=== PATIENT | female | born 2000 | race Caucasian/White ===

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

== ENCOUNTER 2019-07-25 18:43 | Emergency (ER) | payer MEDICAID, SELFPAY ==
[2019-07-25 18:44] VITALS: BP 130/76; PULSE 102; RESP 16; TEMP 36.7; O2SAT 97; BMI 42.1
--- NOTE | 2019-07-25 18:56 | ED.VIS.GEN ---
History of Present Illness Chief Complaint: Cough Informant: Patient Onset: Weeks Current Severity: Mild Maximum Severity: Mild Narrative: Patient presents secondary to viral URI symptoms. She states for the past 1 week she had a low-grade fever. Today it was up to 100.5, the highest the temperature has been a week. She reports generalized fatigue and some mild body aches. She reports occasional white to yellow-colored sputum production with her cough. Patient believes she has a viral upper respiratory infection, however believes that she should follow supportive care at home. She is here at the insistence of her family. - Past Medical History (1) PCOS (polycystic ovarian syndrome) Status: Chronic (2) Depression Status: Chronic (3) Patellofemoral syndrome Status: Chronic Past Medical History - Allergies and Home Meds Allergies/Adverse Reactions: Allergies amoxicillin [From Augmentin] Allergy (Verified 07/25/19 18:44) Hives clavulanic acid [From Augmentin] Allergy (Verified 07/25/19 18:44) Hives Primary Care Physician: Lashae Rebolledo MD [Primary Care Provider] - Prior records reviewed: Yes Lives: Spouse/ Significant Other Smoking Status: Current every day smoker Review of Systems General: Reports: Fever - T-max equals 100.5 Eyes: Denies: Visual changes - bilaterally ENT: Reports: Sore throat - Mild sore throat. Denies: Bilateral ear pain Cardiovascular: Denies: Chest pain Respiratory: Reports: Cough, Sputum. Denies: Dyspnea Gastrointestinal: Denies: Abdominal pain, Nausea, Vomiting, Diarrhea Musculoskeletal: Reports: Myalgias. Denies: Extremity Pain Skin: Denies: Rash Neurological: Denies: Headache Endocrine: Denies: Polyuria, Polydipsia Hematologic: Denies: Easy bruising Allergy: Denies: Uticaria Physical Exam Vital Signs/Narrative: Vital Signs Temp Pulse Resp BP Pulse Ox 07/25/19 18:44 98.1 F 102 H 16 130/76 H 97 Inital Vital Signs reviewed: Yes General: Well nourished, Well developed Head: Normocephalic Eyes: Perrl, EOMI ENT: TM's clear, - - Mild posterior pharyngeal drainage. Uvula midline. Neck: Supple Cardiovascular: Regular rate, Regular rhythm Respiratory: No distress, CTA bilaterally Abdomen: Soft, Nontender, Nondistended Extremities: Nontender Skin: Normal color Neurological: Alert, Oriented x3, Normal Strength, Normal Sensation Psychological: Normal affect Diagnostic/Tx/Re-eval - Medical Decision Making I discussed with the patient that I agree she has a viral syndrome. This could be secondary to influenza, coronavirus, or multitude of other viruses. At this time she does not meet criteria for testing for coronavirus. She had very minimal fever and I do not believe influenza testing is needed, especially in light of the fact that she has had symptoms for 1 week. Patient is comfortable with supportive care at home. She will be given handout on coronavirus and how to self monitor her symptoms. ED Disposition - Plan for ED Patient: Disposition: Home or Assisted Living Diagnosis: Viral syndrome Instructions: ED Viral Syndrome Referrals: Lashae Rebolledo MD [Primary Care Provider] - As Needed
== END 2019-07-25 19:13 | disposition home or self-care (01) ==
PROVIDERS: Emergency Provider Emergency Medicine; PCP Pediatrics
DX: B34.9 Viral infection, unspecified (principal); R50.9 Fever, unspecified; R05 Cough; R53.83 Other fatigue; J02.9 Acute pharyngitis, unspecified; M79.10 Myalgia, unspecified site; E28.2 Polycystic ovarian syndrome; Z79.84 Long term (current) use of oral hypoglycemic drugs; F17.200 Nicotine dependence, unspecified, uncomplicated
CPT/HCPCS: 99282

== ENCOUNTER 2019-08-15 17:00 | Emergency (ER) | payer MEDICAID, SELFPAY ==
[2019-08-15 17:01] VITALS: BP 133/78; PULSE 108; RESP 17; TEMP 36.8; O2SAT 97; BMI 44.1
[2019-08-15 17:10] VITALS: O2SAT 97
--- NOTE | 2019-08-15 17:15 | ED.DCSUM_ITS ---
- ER Visit Summary Date of Service: 08/15/19 Chief Complaint: Cough History of Present Illness: The patient is a 19 F who presents with a cough. She has had this for 1 week. She states is productive of a whitish sputum. She also notes the nasal congestion. She saw her doctor who put her on albuterol and Mucinex. She is not getting any better with this. She was tested for mono but this was negative as well. Denies any exposures to anybody with coronavirus. She has not had a fever at home. She does vape at home as well. Physical Examination: Vital signs reviewed. HEENT exam unremarkable. Heart is regular rate and rhythm without murmurs. Lungs are clear to auscultation. Abdomen is soft and nontender. Extremities reveal no edema. Skin exam normal. Neurologic exam normal. Test Results: None performed Emergency Department Course and Treatment: The patient states that she is already had a CAT scan during this process and it was negative. I do not feel this needs to be repeated. I want to start her on antibiotics regardless. I will give her a Z-Manoj and prednisone. She will call her doctor later this week for follow-up Treatment Plan: [] Disposition: Discharge Impression: Acute bronchitis This note was generated with [employer] dictation software. It may contain incorrect words, spelling, and punctuation that were not noted in review of the chart prior to signing ED Disposition - Plan for ED Patient: Disposition: Home or Assisted Living Instructions: ED Upper Resp Infec Abx Tx Prescriptions: Prednisone [Deltasone] 40 mg PO DAILY #10 tab Transmission Status: Pending to [facility] Azithromycin [Zithromax Z-Manoj] 250 mg PO UD #1 box Transmission Status: Pending to [id number] Referrals: Lsahae Rebolledo MD [Primary Care Provider] -
== END 2019-08-15 17:23 | disposition home or self-care (01) ==
LOC: ED 17:20
PROVIDERS: Emergency Provider Emergency Medicine; PCP Pediatrics
DX: J20.9 Acute bronchitis, unspecified (principal); Z72.0 Tobacco use
CPT/HCPCS: 99282

== ENCOUNTER 2019-10-06 13:00 | Emergency (ER) | payer MEDICAID, SELFPAY ==
[2019-10-06 13:01] VITALS: BP 136/116; PULSE 93; RESP 17; TEMP 36.4; O2SAT 98; BMI 46.5
--- NOTE | 2019-10-06 13:24 | ED.DCSUM_ITS ---
History of Present Illness Chief Complaint: Cough Informant: Patient Onset: Days - 4 days Context: Gradual Onset Current Severity: Moderate Maximum Severity: Moderate Narrative: Patient presents secondary to 4-day history of shortness of breath with cough. She describes chest heaviness and achiness. She has occasional white to green- colored sputum production. She does feel that she is wheezing. She is had chills but no measured fever. She does report loss of taste and a sore throat. She has had mild diarrhea. - Past Medical History (1) Depression Status: Chronic (2) PCOS (polycystic ovarian syndrome) Status: Chronic (3) Patellofemoral syndrome Status: Chronic Past Medical History - Allergies and Home Meds Allergies/Adverse Reactions: Allergies amoxicillin [From Augmentin] Allergy (Verified 10/06/19 13:01) Hives clavulanic acid [From Augmentin] Allergy (Verified 10/06/19 13:01) Hives Primary Care Physician: Lobito Wall MD [Primary Care Provider] - 1 Week if not improving Prior records reviewed: Yes Smoking Status: Current every day smoker Review of Systems General: Reports: Chills. Denies: Fever Eyes: Denies: Visual changes - bilaterally ENT: Reports: Sore throat. Denies: Bilateral ear pain Cardiovascular: Reports: Chest pain Respiratory: Reports: Dyspnea, Cough, Sputum Gastrointestinal: Reports: Diarrhea. Denies: Abdominal pain, Nausea, Vomiting Genitourinary: Denies: Dysuria Musculoskeletal: Denies: Swelling, Extremity Pain Skin: Denies: Rash Neurological: Denies: Headache Hematologic: Denies: Easy bruising, Easy bleeding Allergy: Denies: Uticaria Physical Exam Vital Signs/Narrative: Vital Signs Temp Pulse Resp BP Pulse Ox 10/06/19 13:01 97.6 F L 93 17 136/116 H 98 Inital Vital Signs reviewed: Yes General: Well nourished, Well developed Head: Normocephalic ENT: Moist mucous membranes, TM's clear, - - Normal posterior pharynx. Neck: Supple, Nontender Cardiovascular: Regular rate, Regular rhythm Respiratory: No distress, CTA bilaterally Abdomen: Soft, Nontender, Normal bowel sounds Back: Nontender Extremities: Nontender Skin: Normal color, No rash Neurological: Alert, Oriented x3 Psychological: Normal affect Diagnostic/Tx/Re-eval Impressions Chest X-Ray 10/06/19 13:25 IMPRESSION: Normal x-ray examination of the chest. Electronically Signed: Nicholas Munoz, at 14:03 EDT , Service support , 10/06/19 13:25 Chest 1 View (Portable) [RAD] Stat - Medical Decision Making Patient was given albuterol MDI with spacer here along with Robitussin-AC. I did speak with [facility] to obtain Covid testing. Because of her age and lack of comorbid conditions they declined testing. Her test will be sent to [facility]. On repeat evaluation cough is slightly improved. X-ray does not reveal pneumonia. I discussed with her that I truly believe this is all viral in nature. Covid testing will be back in a couple of days. We discussed getting a pulse ox meter at home to watch her oxygen level. She has her albuterol inhaler to take home and will be given a prescription for Robitussin-AC. ED Disposition - Plan for ED Patient: Disposition: Home or Assisted Living Diagnosis: Viral URI Instructions: ED URI Viral Prescriptions: Guaifenesin/Codeine [Robitussin AC] 10 ml PO Q6H PRN PRN #120 udc PRN Reason: Cough Transmission Status: Received by [id number] Referrals: Lobito Wall MD [Primary Care Provider] - 1 Week if not improving
--- NOTE | 2019-10-06 13:25 | RAD_ITS ---
STUDY: X-RAY CHEST REASON FOR EXAM: Female, 19 years old. Pt arrives to ed with chest pain. Stated last night. hx of cva. TECHNIQUE: Single AP portable view of the chest. COMPARISON: None. FINDINGS: The lungs are clear and expanded. There is no demonstrated pleural abnormality. Normal size heart. Normal mediastinum and dk. Normal visualized pulmonary arteries. Normal visualized aortic arch and descending thoracic aorta. Normal visualized thoracic spine. Normal visualized ribs, clavicles, and shoulders. There is no demonstrated abnormality of the visualized soft tissue structures of the upper abdomen. RAD/Chest 1 View (Portable) IMPRESSION: Normal x-ray examination of the chest. Electronically Signed: Nicholas Munoz, at 14:03 EDT , Service support ,
[2019-10-06] MEDS: INHALER, ASSIST DEVICES 1 EACH SPACER INHALATION (14:02)
[2019-10-06] MEDS: guaiFENesin/Codeine 5 ML UDC 10 ML PO (14:06)
== END 2019-10-06 14:37 | disposition home or self-care (01) ==
PROVIDERS: Emergency Provider Emergency Medicine; PCP Pediatrics
DX: J06.9 Acute upper respiratory infection, unspecified (principal); F32.9 Major depressive disorder, single episode, unspecified; E28.2 Polycystic ovarian syndrome; M22.2X9 Patellofemoral disorders, unspecified knee; Z79.84 Long term (current) use of oral hypoglycemic drugs; Z79.899 Other long term (current) drug therapy; F17.200 Nicotine dependence, unspecified, uncomplicated
CPT/HCPCS: 71045; 87635; 94640; 99283; C9803; G2023; U0003